=== PATIENT | female | born 1995 | race African-American/Black ===

== ENCOUNTER 2017-01-15 12:12 | Emergency (ER) | payer BC ==
[~2017-01-15] VITALS: Ht 160 cm; Wt 84.4 kg
[2017-01-15 12:16] VITALS: BP 158/96; PULSE 90; RESP 16; TEMP 98.6; O2SAT 99
[2017-01-15] MEDS ORDERED: MAGICPED SWISH-SWAL (12:31)
--- NOTE | 2017-01-15 12:40 | PD ---
HPI Chief Complaint: Cold / Flu Symptoms Time Seen by Provider: 12:32 Travel History International Travel<30 days: No Contact w/Intl Traveler<30days: No Traveled to known affect area: No History of Present Illness HPI 21 year-old female presents to the emergency room for evaluation of sore throat and nonproductive cough for the past week. Patient states started off with a cough and a sore throat started several days later. Sore throat is worst in the morning and with eating and drinking. She has been taking elvh-hgg-hzahuwh cough and cold medication without relief in symptoms. She denies fever, chills , nausea, vomiting, earache, congestion, or rhinorrhea. States she recently changed her air filter. Denies any new environmental exposures. PFSH Past Medical History Medical History: Denies Significant Hx Respiratory: Yes (asthma exercise induced) Influenza Vaccination: No ?: Not LMP: 11/10/16 irregular menses Past Surgical History Surgical History: No Previous Surgery Social History Alcohol Use: Yes (OCCAS) Tobacco Use: No Substance Use: No Allergies-Medications (Allergen,Severity, Reaction): Coded Allergies: No Known Allergies (Unverified , 01/15/17) Reported Meds & Prescriptions Reported Meds & Active Scripts Active Magic Mouthwash Pediatric/Adult Liq (Lidocaine/Diphenhydr/Alum/Mg/Simeth) 60 Ml Susp 5 Ml SWISH-SWAL ACHS Each 5mL contains: Diphenydramine 4.5mg, Viscous Lidocaine 2% 10mg, Maalox Advanced Regular Strength 2.7ml Review of Systems Except as stated in HPI: all other systems reviewed are Neg Physical Exam Narrative GENERAL: Well-nourished, well-developed female in no acute distress. Afebrile. Ambulatory. SKIN: Focused skin assessment warm/dry. HEAD: Normocephalic. EYES: No scleral icterus. No injection or drainage. ENT: Mucosa pink and moist. Mild erythema without exudates. No uvular edema. No uvular, palatal, or tonsillar deviation. Airway patent. Nasal turbinates appear normal without nasal blood, purulent drainage or septal hematoma. EARS: Bilateral pinnae and external canals appear within normal limits. Bilateral tympanic membranes without erythema, dullness or perforation. NECK: Supple, trachea midline. No JVD or lymphadenopathy. CARDIOVASCULAR: Regular rate and rhythm without murmurs, gallops, or rubs. RESPIRATORY: Breath sounds equal bilaterally. No accessory muscle use. No crackles, rales, wheezes, or rhonchi. Data Data Last Documented VS Vital Signs Date Time Temp Pulse Resp B/P Pulse Ox O2 Delivery O2 Flow Rate FiO2 01/15/17 12:16 98.6 90 16 158/96 99 MDM Medical Decision Making Medical Screen Exam Complete: Yes Emergency Medical Condition: Yes Medical Record Reviewed: Yes Differential Diagnosis Streptococcal pharyngitis versus allergic versus bronchitis Narrative Course 21-year-old female presents to the emergency room for evaluation of nonproductive cough and sore throat for the past week. No history of fever. Vital signs stable. Physical exam is reassuring and patient is overall very well appearing. Bilateral lung sounds clear and equal. Throat is mildly erythematous without exudate or edema. Patient likely has postnasal drip due to allergies or viral upper respiratory infection. No indication for antibiotics at this time. She was given suggestions for amnk-fio-zoooeue medications including Robitussin, cough drops, and allergy medication and a prescription for magic mouthwash. Told to follow up with a primary care physician and return to the emergency room for worsening. She understands and agrees to this plan. Diagnosis Primary Impression: Upper respiratory infection, viral Referrals: Primary Care Physician Patient Instructions: General Instructions, Upper Respiratory Infection (ED) Additional Instructions: Rest and drink plenty of fluids. Cough may linger and become a viral bronchitis which can last several weeks. Use Magic mouthwash as needed for throat. Take ibuprofen with food as directed, as needed for pain. Follow-up with a primary care physician. Return to the emergency room for worsening symptoms. Med/Other Pt SpecificInfo: Prescription(s) given Scripts Exabxdmpssfblox-Almurncvg-Mfc-Alum-Simeth Liq (Magic Mouthwash Pediatric/Adult Liq)60 Ml Susp5 Ml SWISH-SWAL ACHS #60 ML Ref 0 Each 5mL contains: Diphenydramine 4.5mg, Viscous Lidocaine 2% 10mg, Maalox Advanced Regular Strength 2.7ml Prov:Funmi Dempsey MD 01/15/17 Disposition: 01 DISCHARGE HOME Condition: Stable Ashley Reyes January 15, 2017 12:40
== END 2017-01-15 12:44 | disposition home or self-care (01) ==
LOC: PHEFT 12:12
DX: J06.9 Acute upper respiratory infection, unspecified (principal)
CPT/HCPCS: 99283